=== PATIENT | male | born 1950 ===

== ENCOUNTER 2018-04-19 08:54 | Day surgery (SDC) | payer MEDICARE ==
[2018-04-19] MEDS ORDERED: Propofol 10 mg/ml Inj (20 ML) ONE (10:44)
[2018-04-19 10:54] VITALS: BMI 33.4
[2018-04-19 11:40] VITALS: TEMP 96.9; O2SAT 97
[2018-04-19 12:38] VITALS: BP 121/78; PULSE 66; RESP 17
== END 2018-04-19 12:25 | disposition home or self-care (01) ==
LOC: C.ENDO 08:54
PROVIDERS: ATTEND Internal Medicine Gastroenterology
DX: Z12.11 Encounter for screening for malignant neoplasm of colon (principal); R13.10 Dysphagia, unspecified; K57.30 Diverticulosis of large intestine without perforation or abscess without bleeding; D12.5 Benign neoplasm of sigmoid colon; D12.3 Benign neoplasm of transverse colon; K64.8 Other hemorrhoids; K20.9 Esophagitis, unspecified; K29.70 Gastritis, unspecified, without bleeding
CPT/HCPCS: 43239; 45385; 82948; 88305; 88312; 88342; J2704